=== PATIENT | female | born 1970 | race Caucasian/White ===

== ENCOUNTER 2017-04-20 20:51 | Emergency (ER) | payer BC ==
[2017-04-20] MEDS ORDERED: ONDANSETRON 4 MG ODT STARTER PACK 2 TAB BTL PO STA (21:31)
--- NOTE | 2017-04-20 22:05 | CT ---
EXAMINATION TYPE: CT brain wo con DATE OF EXAM: 04/20/2017 COMPARISON: NONE HISTORY: Migraine today. Light sensitivity. CT DLP: 1017.10 mGycm. Automated Exposure Control for Dose Reduction was Utilized. TECHNIQUE: CT scan of the head is performed without contrast. FINDINGS: There is no acute intracranial hemorrhage, mass effect, or midline shift identified. The ventricles and sulci are within normal limits in size. The globes are intact and the visualized sin uses are clear. IMPRESSION: No acute intracranial hemorrhage, mass effect, or midline shift is seen.
[2017-04-20] MEDS ORDERED: METOCLOPRAMIDE 5 MG/ML 2 ML VIAL IVP STA (22:33)
[2017-04-20] MEDS ORDERED: SODIUM CHLORIDE 0.9% 500 ML IV ONE (22:34)
[2017-04-20] MEDS ORDERED: DIHYDROERGOTAMINE MESYLATE 1 MG/ML 1 ML AMP IVP STA (22:35)
--- NOTE | 2017-04-20 22:36 | ED ---
General Adult HPI - General Source: patient, family, RN notes reviewed Mode of arrival: ambulatory Limitations: no limitations - History of Present Illness Location: genitals <Rashard Cruz - Last Filed: 04/20/17 22:15> <Randy Mc - Last Filed: 04/21/17 02:34> - General Chief complaint: Headache Stated complaint: Migraine Time Seen by Provider: 04/20/17 21:16 - History of Present Illness Initial comments: Light and history of present illness a 38-year-old female here for complaint of headache started this morning. Patient reports that she tried Fioricet which helped for several hours and then Aleve which helped for another several hours and then took a Vicodin which did not help. Nausea no vomiting. Mild photophobia. No stiff neck. Past history of migraines for 15 years. No fever. No recent illnesses. (Rashard Cruz) - Related Data Home Medications Medication Instructions Recorded Confirmed Cholecalciferol [Vitamin D3] 1,000 unit PO DAILY 04/20/17 04/20/17 Fexofenadine HCl [Griselda Allergy] 180 mg PO DAILY PRN 04/20/17 04/20/17 Norethindrone [Oriana] 0.35 mg PO DAILY 04/20/17 04/20/17 Omeprazole [PriLOSEC] 20 mg PO DAILY 04/20/17 04/20/17 Allergies Allergy/AdvReac Type Severity Reaction Status Date / Time diclofenac sodium Allergy facial Verified 04/20/17 21:16 [From Arthrotec] swelling misoprostol [From Arthrotec] Allergy facial Verified 04/20/17 21:16 swelling hydromorphone HCl AdvReac Nausea & Verified 04/20/17 21:16 [From Dilaudid] Vomiting Review of Systems ROS Other: All systems not noted in ROS Statement are negative. <Rashard Cruz - Last Filed: 04/20/17 22:15> ROS Other: All systems not noted in ROS Statement are negative. <Randy Mc - Last Filed: 04/21/17 02:34> ROS Statement: Those systems with pertinent positive or pertinent negative responses have been documented in the HPI. Review of systems frontal headache. No runny nose. Photophobia. No stiff neck or meningismus. No chest pain or shortness of breath no GI/ complaints or problems other than nausea but no vomiting no diarrhea. No rashes. All systems reviewed. Past medical problems significant for migraines 15 years otherwise complains of GERD, osteoarthritis history of back spasms and pain. Past surgeries include gallbladder, orthopedic surgery on both knees for menisci. Also laparoscopic examination for endometriosis. Family history father had [facility] grandfather cancer grandmother pancreatic the grandfather colon cancer. Nonsmoker nondrinker. ( Rashard Cruz) Past Medical History Past Medical History: GERD/Reflux, Osteoarthritis (OA) Additional Past Medical History / Comment(s): HX OF BACK SPASMS, FREQUENT DIARRHEA, HX OF HEART PALPITATIONS 8 YEARS AGO. History of Any Multi-Drug Resistant Organisms: None Reported Past Surgical History: Cholecystectomy, Orthopedic Surgery Additional Past Surgical History / Comment(s): EXP. LAPAROSCOPY, ARTHROSCOPY KNEE. Past Anesthesia/Blood Transfusion Reactions: Postoperative Nausea & Vomiting ( PONV) Past Psychological History: No Psychological Hx Reported Smoking Status: Never smoker Past Alcohol Use History: None Reported Past Drug Use History: None Reported - Past Family History Mother Additional Family Medical History / Comment(s): EMPHYSEMA Father Additional Family Medical History / Comment(s): HEART PROBLEMS <Rashard Cruz - Last Filed: 04/20/17 22:15> General Exam Limitations: no limitations <Rashard Cruz - Last Filed: 04/20/17 22:15> <Randy Mc - Last Filed: 04/21/17 02:34> - General Exam Comments Initial Comments: General: The patient is awake and alert, complaining of a migraine type headache which is recurrent. She reports she gets these every several months. No specific trigger. Vital signs temperature 98.0 pulse 77 respiratory rate 18 pulse ox on percent room air blood pressure 136/67 Eye: Pupils are equal, round and reactive to light, extra-ocular movements are intact ; there is normal conjunctiva bilaterally. No signs of icterus. Ears, nose, mouth and throat: There are moist mucous membranes and no oral lesions. Neck: The neck is supple, there is no tenderness . Patient appears to have had a mosquito or bug bite with local inflammation reaction to her anterior neck area. Cardiovascular: There is a regular rate and rhythm. No murmur, rub or gallop is appreciated. Respiratory: Lungs are clear to auscultation, respirations are non-labored, breath sounds are equal. No wheezes, stridor, rales, or rhonchi. Gastrointestinal: Soft, non-distended, non-tender abdomen without masses or organomegaly noted. There is no rebound or guarding present. No CVA tenderness. Bowel sounds are unremarkable. Back: There is no tenderness to palpation in the midline. There is no obvious deformity. No rashes noted. Musculoskeletal: Normal ROM, no tenderness, There is no pedal edema. There is no calf tenderness or swelling. Neurological: CN II-XII intact, There are no obvious motor or sensory deficits. Coordination appears grossly intact. Speech is normal. No focal or lateralizing findings Skin: No skin rashes. (Rashard Cruz) Medical Decision Making <Rashard Cruz - Last Filed: 04/20/17 22:15> <Randy Mc - Last Filed: 04/21/17 02:34> - Medical Decision Making Medical decision making; patient had a CAT scan of the brain. And reviewed by radiologist. His final impression is no acute intracranial hemorrhage, mass effect, or midline shift seen. As read by Dr. Brown The patient had an adverse reaction to diclofenac with eye swelling. And hydromorphone which caused nausea vomiting. The patient will be given D.H.E. 45 , with IV hydration and IV Reglan. for her headache. (Rashard Cruz) Disposition <Rashard Cruz - Last Filed: 04/20/17 22:15> <Randy Mc - Last Filed: 04/21/17 02:34> Clinical Impression: Migraine Disposition: HOME SELF-CARE Condition: Good Instructions: Acute Headache (ED) Referrals: Florecita Jose MD [Primary Care Provider] - 1-2 days
[2017-04-21] MEDS ORDERED: BUTALB/APAP/CAFF 50-325-40MG TAB PO STA (00:35)
[2017-04-21] MEDS ORDERED: ACETAMINOPHEN IV (For NPO) 1,000 MG in EMPTY BAG 1 BAG IVPB STA (00:39)
[2017-04-21] MEDS ORDERED: MORPHINE SULFATE 2 MG/ML SYRINGE IVP ONE (01:22)
[2017-04-21] MEDS ORDERED: diphenhydrAMINE 50 MG/ML 1 ML VIAL IVP STA (01:52)
[2017-04-21] MEDS ORDERED: PROCHLORPERAZINE 10 MG TAB PO STA (01:54)
[2017-04-21 03:26] VITALS: BP 120/70; PULSE 58; RESP 18; TEMP 97.9
== END 2017-04-21 02:50 | disposition home or self-care (01) ==
LOC: EC 20:51
DX: G43.909 Migraine, unspecified, not intractable, without status migrainosus (principal); K21.9 Gastro-esophageal reflux disease without esophagitis; Z79.899 Other long term (current) drug therapy; Z88.5 Allergy status to narcotic agent; Z88.6 Allergy status to analgesic agent; Z88.8 Allergy status to other drugs, medicaments and biological substances
CPT/HCPCS: 99284; 96365; 96375 ×4; 96361 ×2; 70450; S0183; J1110; J1200; J2765; J2270; J0131; S0119

== ENCOUNTER → 2017-09-08 | Outpatient (CLI) | payer BC ==
[2017-09-08 16:43] LABS: Basophils % (A) 0 %; CHCM 31.6; Eosinophils # (A) 0.2 k/uL (0-0.7); Eosinophils % (A) 2 %; HCT 39.5 % (34.0-46.0); HDW 2.44; HGB 12.3 gm/dL (11.4-16.0); Luc # (Auto) 0.07; Luc % (Auto) 1; Lymphocytes # (A) 2.2 k/uL (1.0-4.8); Lymphocytes % (A) 25 %; MCH 26.7 pg (25.0-35.0); MCHC 31.2 g/dL (31.0-37.0); MCV 85.7 fL (80.0-100.0); Mean Platelet Volume 7.4; Monocytes # (A) 0.4 k/uL (0-1.0); Monocytes % (A) 4 %; Neutrophils % (A) 68 %; RBC 4.62 m/uL (3.80-5.40); RDW 13.9 % (11.5-15.5); WBC 8.8 k/uL (3.8-10.6); WBC (Perox) 9.29
[2017-09-08 16:54] LABS: Potassium 4.7 mmol/L (3.5-5.1)
== END | disposition home or self-care (01) ==
LOC: LABWHC1 16:12
PROVIDERS: ATTEND Orthopaedic Surgery
DX: Z01.812 Encounter for preprocedural laboratory examination (principal); G56.01 Carpal tunnel syndrome, right upper limb
CPT/HCPCS: 36415; 80051; 85025

== ENCOUNTER 2017-10-01 11:22 | Day surgery (SDC) | payer BC ==
[2017-09-30 08:31] VITALS: BMI 36.3
--- NOTE | 2017-09-30 14:12 | HP ---
HISTORY AND PHYSICAL Surgery scheduled for 10/01/2017. Madeline Blanca is a 46-year-old patient seen with symptomatic right carpal tunnel syndrome. After treatment options were discussed, she elected to proceed with decompression right median nerve. Consent regarding the procedure was obtained. PAST MEDICAL HISTORY: Gastroesophageal reflux disease. PAST SURGICAL HISTORY: Noncontributory. MEDICATIONS: Omeprazole. ALLERGIES: ARTHROTEC. SOCIAL HISTORY: The patient denies current tobacco use. PHYSICAL EVALUATION OF THE RIGHT HAND: Positive carpal compression, carpal Tinel's causing numbness and tingling to the median nerve distribution. There is decreased light touch throughout the median nerve to be distribution. There is no tenderness along the A1 marine areas. There is a good radial pulse is present. There is good perfusion and sensation distally. Radiographs of the right hand revealed mild osteoarthritis. An EMG of the right upper extremity revealed carpal tunnel syndrome. IMPRESSION: Right carpal tunnel syndrome. PLAN: Decompression right median nerve. MMODL / IJN: [id number] /
[~2017-10-01 11:22] MED LIST: DEXAMETHASONE SOD PHOSPHATE 10 MG/ML 1 ML VIAL IV ONE; LACTATED RINGERS 1,000 ML IV SCH; MIDAZOLAM 2 MG/2 ML VIAL IV PRN; MORPHINE SULFATE 4 MG/ML SYRINGE IV PRN; ONDANSETRON 4 MG/2 ML VIAL IVP ONE; ceFAZolin IN SWFI 2 GM/20 ML SYRINGE IVP ONE
[2017-10-01 12:11] VITALS: TEMP 98.3
[2017-10-01] MEDS ORDERED: LIDOCAINE 1% 20 ML VIAL (10MG/ML) FOR IV START INTRADERMA ONE (12:29)
[2017-10-01] MEDS ORDERED: MIDAZOLAM 2 MG/2 ML VIAL ONE (13:34)
[2017-10-01] MEDS ORDERED: fentaNYL (PF) 50 MCG/ML 2 ML AMP ONE (13:34)
[2017-10-01] MEDS ORDERED: PROPOFOL 10 MG/ML 20 ML VIAL IV ONE (13:34)
[2017-10-01] MEDS ORDERED: BUPIVACAINE (PF) 0.25% 30 ML VIAL SQ ONE (13:34)
--- NOTE | 2017-10-01 13:59 | P.OP ---
Date of Procedure: 10/01/17 Preoperative Diagnosis: Right carpal tunnel syndrome Postoperative Diagnosis: Right carpal tunnel syndrome Procedure(s) Performed: Decompression right median nerve Anesthesia: MAC, local Surgeon: Joselito Farmer Estimated Blood Loss (ml): 0 Pathology: none sent Condition: stable Disposition: PACU Indications for Procedure: 46-year-old patient seen with symptomatic right carpal tunnel syndrome. After treatment options were discussed she elected to proceed with decompression. Operative Findings: See description of procedure Description of Procedure: The patient was taken to the operative suite. The patient underwent IV sedation by the department of anesthesia. She had received preoperative IV antibiotics. A well-padded tourniquet was placed proximal right upper extremity. The right upper extremity was prepped and draped in the normal sterile orthopedic fashion. The proposed incision site was infiltrated with 10 mL quarter percent plain Marcaine. Once sufficient local analgesia was noted the extremity was elevated and tourniquet insufflated to 250. I made an incision beginning at the distal volar wrist crease extending distally 3 cm in line with the fourth metacarpal sharply through skin. I dissected through the subcutaneous soft tissues and through the palmar fascia to the transverse carpal ligament. I incised the transverse carpal ligament making sure to release it completely proximally and distally with blunt Metzenbaums. There was good complete release of the transverse carpal ligament and good decompression of the nerve. There was good hemostasis. The wound was irrigated. The skin margins were approximated with nylon suture. Sterile dressings were applied. The tourniquet was released with immediate capillary refill of all digits. The patient was then transferred to recovery in stable condition.
[2017-10-01 14:15] VITALS: RESP 18
[2017-10-01 14:49] VITALS: BP 115/80; PULSE 63
== END 2017-10-01 15:01 | disposition home or self-care (01) ==
LOC: OR 11:22
PROVIDERS: ATTEND Orthopaedic Surgery
DX: G56.01 Carpal tunnel syndrome, right upper limb (principal); M19.041 Primary osteoarthritis, right hand; K21.9 Gastro-esophageal reflux disease without esophagitis; Z79.899 Other long term (current) drug therapy; Z79.3 Long term (current) use of hormonal contraceptives; Z88.6 Allergy status to analgesic agent; Z88.5 Allergy status to narcotic agent
CPT/HCPCS: 81025; 64721; J2250; J1100; J0690; J2405; J3010; J2704

== ENCOUNTER → 2018-03-30 | Outpatient (CLI) | payer BC ==
[2018-03-30 10:09] LABS: Basophils # (A) 0.1 k/uL (0-0.2); Basophils % (A) 1 %; Eosinophils # (A) 0.1 k/uL (0-0.7); Eosinophils % (A) 2 %; HCT 38.9 % (34.0-46.0); HGB 12.9 gm/dL (11.4-16.0); Lymphocytes # (A) 1.8 k/uL (1.0-4.8); Lymphocytes % (A) 24 %; MCH 26.9 pg (25.0-35.0); MCHC 33.3 g/dL (31.0-37.0); MCV 80.9 fL (80.0-100.0); Mean Platelet Volume 6.3; Monocytes # (A) 0.4 k/uL (0-1.0); Monocytes % (A) 6 %; Neutrophils # (A) 4.8 k/uL (1.3-7.7); Neutrophils % (A) 66 %; Platelet Count 278 k/uL (150-450); RBC 4.81 m/uL (3.80-5.40); RDW 12.8 % (11.5-15.5); WBC 7.2 k/uL (3.8-10.6)
== END | disposition home or self-care (01) ==
LOC: LABPAT 09:26
PROVIDERS: ATTEND Orthopaedic Surgery
DX: Z01.812 Encounter for preprocedural laboratory examination (principal); G56.02 Carpal tunnel syndrome, left upper limb; M65.332 Trigger finger, left middle finger
CPT/HCPCS: 36415; 85025

== ENCOUNTER → 2018-04-22 | Day surgery (SDC) | payer BC ==
[2018-04-16 09:10] VITALS: BMI 39.8
--- NOTE | 2018-04-21 18:23 | HP ---
HISTORY AND PHYSICAL DATE OF SURGERY: 04/22/2018 Madeline Blanca is a 47-year-old patient seen with symptomatic left carpal tunnel syndrome as well as a left middle finger trigger finger. We discussed options. She elected to proceed with surgical intervention, including decompression of the left median nerve and release A1 marine, left middle finger, for her symptomatic trigger finger. Consent regarding procedure was obtained. PAST MEDICAL HISTORY: Gastroesophageal reflux disease. PAST SURGICAL HISTORY: Noncontributory. DAILY MEDICATIONS: Omeprazole. ALLERGIES: ARTHROTEC. SOCIAL HISTORY: Patient denies current tobacco use. PHYSICAL EVALUATION OF HER LEFT HAND: She has a positive carpal compression, positive carpal Tinel's, both causing numbness and tingling to the median nerve distribution. She has some decreased light touch along the median nerve distribution. She is tender along the A1 marine of the left middle finger with clicking, catching with range of motion there. She has good perfusion distally. There is a good radial pulse present. RADIOGRAPHS: Radiographs of the left hand were obtained revealing some mild osteoarthritic changes. An EMG of the left upper extremity revealed carpal tunnel syndrome. IMPRESSION: 1. Left carpal tunnel syndrome. 2. Left middle finger trigger finger. PLAN: Decompression of left median nerve with release A1 marine, left middle finger. MMODL / IJN: [id number] /
[~2018-04-22] MED LIST changes: +BUPIVACAINE (PF) 0.5% 30 ML VIAL SQ ONE; +LIDOCAINE 1% 20 ML VIAL (10MG/ML) FOR IV START INTRADERMA ONE; +LIDOCAINE 1% INJ 10MG/ML (20 ML MDV) ONE; -MIDAZOLAM 2 MG/2 ML VIAL IV PRN; +MIDAZOLAM 2 MG/2 ML VIAL ONE; -MORPHINE SULFATE 4 MG/ML SYRINGE IV PRN; +PROPOFOL 10 MG/ML 20 ML VIAL IV ONE; +fentaNYL (PF) 50 MCG/ML 2 ML AMP IV PRN; +fentaNYL (PF) 50 MCG/ML 2 ML AMP ONE
[2018-04-22 10:51] VITALS: TEMP 98.4
--- NOTE | 2018-04-22 12:32 | P.OP ---
Date of Procedure: 04/22/18 Preoperative Diagnosis: 1. Left carpal tunnel syndrome 2. Left middle finger trigger finger Postoperative Diagnosis: Same Procedure(s) Performed: 1. Decompression left median nerve 2. Release A1 marine left middle finger Anesthesia: MELIDA local Surgeon: Joselito Farmer Estimated Blood Loss (ml): 1 Pathology: none sent Condition: stable Disposition: PACU Indications for Procedure: 47-year-old patient seen with symptomatic left carpal tunnel syndrome as well as asymptomatic left middle finger trigger finger. After having treatment options discussed, she elected to proceed with surgical release of the left middle finger trigger finger and decompression of the median nerve. Consent was obtained. Operative Findings: see description of procedure Description of Procedure: Patient was taken to the operative suite. The patient received preoperative IV antibiotics. The patient underwent IV sedation/anesthesia by the department of anesthesia. A well-padded tourniquet was placed proximal left upper extremity. Left upper extremity was now prepped and draped in the normal sterile orthopedic fashion. The extremity was elevated and the tourniquet was insufflated to 250. I made an incision beginning at the distal volar wrist crease extending distally approximately 3 cm in line with the fourth metacarpal sharply through skin. I dissected down through the subcutaneous soft tissues to the palmar fascia. I incised the palmar fascia and identified the transverse carpal ligament. I incised the transcarpal ligament and completed the release proximally and distally with blunt Metzenbaums. There was complete release of the ligament with good decompression of the nerve. I now turned my attention to the A1 marine area of the left middle finger. I made an incision over that area. I dissected through the subcu soft tissues down to the A1 marine. This is easily identified. I incised and released the A1 marine with blunt tenotomies. There was complete release of A1 marine. There was good excursion of the middle finger and good excursion of the tendon with no impingement. Both wounds were irrigated. Both incisions were approximated nylon suture. Sterile dressings were applied. The tourniquet was now released with immediate capillary refill of all digits noted. The patient awakened, transferred to recovery in stable condition.
[2018-04-22 12:53] VITALS: BP 115/63; PULSE 79; RESP 16
== END | disposition home or self-care (01) ==
LOC: OR 10:10
PROVIDERS: ATTEND Orthopaedic Surgery
DX: G56.02 Carpal tunnel syndrome, left upper limb (principal); M65.332 Trigger finger, left middle finger; K21.9 Gastro-esophageal reflux disease without esophagitis; Z79.899 Other long term (current) drug therapy; Z88.6 Allergy status to analgesic agent; K76.0 Fatty (change of) liver, not elsewhere classified; Z88.5 Allergy status to narcotic agent
CPT/HCPCS: 81025; 64721; 26055; J2250; J1100; J2405; J2001; J3010; J2704; J0690

== ENCOUNTER 2019-05-09 18:46 | Emergency (ER) | payer BC ==
[2019-05-09] MEDS ORDERED: MORPHINE SULFATE 4 MG/ML SYRINGE IV STA ×2 (19:38→21:19)
[2019-05-09] MEDS ORDERED: SODIUM CHLORIDE 0.9% 1,000 ML IV STA (19:38)
[2019-05-09] MEDS ORDERED: ONDANSETRON 4 MG/2 ML VIAL IVP STA (19:38)
[2019-05-09 20:02] LABS: Basophils % (A) 0 %; Eosinophils # (A) 0.1 k/uL (0-0.7); Eosinophils % (A) 1 %; HCT 38.1 % (34.0-46.0); HGB 12.6 gm/dL (11.4-16.0); Lymphocytes # (A) 1.2 k/uL (1.0-4.8); Lymphocytes % (A) 7 %; MCH 27.3 pg (25.0-35.0); MCHC 32.9 g/dL (31.0-37.0); Mean Platelet Volume 6.5; Monocytes # (A) 0.6 k/uL (0-1.0); Monocytes % (A) 3 %; Neutrophils # (A) 14.5 k/uL (1.3-7.7); Neutrophils % (A) 88 %; Platelet Count 302 k/uL (150-450); RDW 14.5 % (11.5-15.5); WBC 16.5 k/uL (3.8-10.6)
[2019-05-09 20:09] LABS: Appearance,Urine Clear (Clear); Bilirubin,Urine Negative (Negative); Blood,Urine Negative (Negative); Color,Urine Light Yellow; Glucose,Urine (UA) Negative (Negative); Ketones,Urine Negative (Negative); Leukocyte Esterase,Urine Negative (Negative); Nitrite,Urine Negative (Negative); Protein,Urine Negative (Negative); Specific Gravity,Urine 1.008 (1.001-1.035); Urobilinogen,Urine <2.0 mg/dL (<2.0)
[2019-05-09 20:16] LABS: Albumin 4.4 g/dL (3.5-5.0); Calcium 9.6 mg/dL (8.4-10.2); Potassium 4.3 mmol/L (3.5-5.1); Total Bilirubin 1.2 mg/dL (0.2-1.3); Total Protein 7.1 g/dL (6.3-8.2)
--- NOTE | 2019-05-09 21:09 | US ---
EXAMINATION TYPE: US kidneys/renal and bladder DATE OF EXAM: 05/09/2019 COMPARISON: NONE CLINICAL HISTORY: Pain. Pain left side x 3 days. No hx of kidney stones. EXAM MEASUREMENTS: Right Kidney: 9.8 x 4.6 x 5.1 cm Left Kidney: 11.7 x 6.4 x 6.1 cm Right Kidney: No hydronephrosis or masses seen Left Kidney: No hydronephrosis or masses seen Bladder: Internal echoes seen. Artifact? Bilateral Jets seen: no Bladder wall measures 3.7 mm. IMPRESSION: Echogenicity within the dependent urinary bladder could be some debris or old blood clot. No renal ma ss or obstruction.
[2019-05-09 21:14] VITALS: BP 133/83
--- NOTE | 2019-05-09 21:19 | ED ---
General Adult HPI - General Chief complaint: Abdominal Pain Stated complaint: abdominal pain Time Seen by Provider: 05/09/19 19:32 Source: patient, RN notes reviewed, old records reviewed Mode of arrival: ambulatory Limitations: no limitations - History of Present Illness Initial comments: 48-year-old female patient with diagnosed kidney stone on 05/07 presents to ED with left flank pain. Patient states that symptoms. Identical to kidney stone prior. Also reports nausea and vomiting. Denies any other complaints at this time. States that she is not . Systemic: Pt denies fatigue, fever/chills, rash. Pt denies weakness, night sweats, weight loss. Neuro: Pt denies headache, visual disturbances, syncope or pre-syncope. HEENT: Pt denies ocular discharge or irritation, otalgia, rhinorrhea, pharyngitis or notable lymphadenopathy. Cardiopulmonary: Pt denies chest pain, SOB, heart palpitations, dyspnea on exertion. Abdominal/GI: Pt denies abdominal pain. : Pt denies dysuria, burning w/ urination, frequency/urgency. Denies new onset urinary or bowel incontinence. MSK: Pt denies myalgia, loss of strength or function in extremities. Neuro: Pt denies new onset weakness, paresthesias. - Related Data Home Medications Medication Instructions Recorded Confirmed Norethindrone [Oriana] 0.35 mg PO DAILY 04/20/17 05/09/19 Omeprazole [PriLOSEC] 20 mg PO DAILY 04/20/17 05/09/19 Cholecalciferol (Vitamin D3) 2,000 unit PO DAILY 05/09/19 05/09/19 [Vitamin D3] Previous Rx's Medication Instructions Recorded Tamsulosin [Flomax] 0.4 mg PO DAILY #10 cap 05/09/19 Allergies Allergy/AdvReac Type Severity Reaction Status Date / Time diclofenac sodium Allergy facial Verified 05/09/19 19:37 [From Arthrotec] swelling misoprostol [From Arthrotec] Allergy facial Verified 05/09/19 19:37 swelling hydromorphone HCl AdvReac Nausea & Verified 05/09/19 19:37 [From Dilaudid] Vomiting Review of Systems ROS Statement: Those systems with pertinent positive or pertinent negative responses have been documented in the HPI. ROS Other: All systems not noted in ROS Statement are negative. Past Medical History Past Medical History: GERD/Reflux, Osteoarthritis (OA) Additional Past Medical History / Comment(s): HX OF BACK SPASMS, HX OF HEART PALPITATIONS 8 YEARS AGO, SEASONAL ALLERGIES History of Any Multi-Drug Resistant Organisms: None Reported Past Surgical History: Cholecystectomy, Orthopedic Surgery Additional Past Surgical History / Comment(s): EXP. LAPAROSCOPY, ARTHROSCOPY BILAT KNEE. RT [facility] Past Anesthesia/Blood Transfusion Reactions: Postoperative Nausea & Vomiting (PONV) Past Psychological History: No Psychological Hx Reported Smoking Status: Never smoker Past Alcohol Use History: None Reported Past Drug Use History: None Reported - Past Family History Mother Additional Family Medical History / Comment(s): EMPHYSEMA Father Additional Family Medical History / Comment(s): HEART PROBLEMS General Exam - General Exam Comments Initial Comments: Constitutional: NAD, AOX3, Pt has pleasant affect. HEENT: NC/AT, trachea midline, neck supple, no lymphadenopathy. Posterior pharynx non erythematous, without exudates. External ears appear normal, without discharge. Mucous membranes moist. Eyes PERRLA, EOM intact. There is no scleral icterus. No pallor noted. Cardiopulmonary: RRR, no murmurs, rubs or gallops, no JVD noted. Lungs CTAB in anterior and posterior kaur. No peripheral edema. Abdominal exam: Abdomen soft and non-distended. Abdomen non-tender to palpation in all 4 quadrants. Bowel sounds active in LLQ. No hepatosplenomegaly. No ecchymosis, no CVA tenderness. Neuro: CN II-XII grossly intact. No nuchal rigidity. No raccon eyes, no muñoz sign, no hemotympanum. No cervical spinal tenderness. MSK: No posterior calf tenderness bilaterally, homans sign negative bilaterally. Posterior tibialis and radial pulse +2 bilaterally. Sensation intact in upper and lower extremities. Full active ROM in upper and lower extremities, 5/5 stregnth. Limitations: no limitations Course Vital Signs 05/09/19 05/09/19 05/09/19 19:01 21:00 23:02 Temperature 98.6 F 98.9 F Pulse Rate 82 87 72 Respiratory 18 18 16 Rate Blood Pressure 134/84 133/83 O2 Sat by Pulse 99 94 L 98 Oximetry Medical Decision Making - Medical Decision Making 48-year-old female patient since ED with chief complaint of left flank pain lik nikki secondary to presumed diagnosed kidney stone. In patient's triage note she reported that she had decreased urination, further history taking reports that she had lots of urination yesterday more than normal, patient has a normal amount. Still complains of nausea and vomiting. Patient vital signs stable, afebrile. His exam did not display acute pathology. Laboratory investigations revealed a leukocytosis of 16.5. CMP reveals creatinine of 1.24. No prior. Patient administered 1 L normal saline. UA was negative. Ultrasound reveals an bladder displayed possible blood clot in bladder, no renal mass or obstruction. Patient pain well-controlled in ER. Patient was discharged with [facility] urology and primary care provider follow-up. Case discussed with Dr. Maguire. - Lab Data Result diagrams: 05/09/19 19:05/09/19 19: Lab Results 05/09/19 05/09/19 05/09/19 Range/Units 19: 19: 19:29 WBC 16.5 H (3.8-10.6) k/uL RBC 4.60 (3.80-5.40) m/uL Hgb 12.6 (11.4-16.0) gm/dL Hct 38.1 (34.0-46.0) % MCV 83.0 (80.0-100.0) fL MCH 27.3 (25.0-35.0) pg MCHC 32.9 (31.0-37.0) g/dL RDW 14.5 (11.5-15.5) % Plt Count 302 (150-450) k/uL Neutrophils % 88 % Lymphocytes % 7 % Monocytes % 3 % Eosinophils % 1 % Basophils % 0 % Neutrophils # 14.5 H (1.3-7.7) k/uL Lymphocytes # 1.2 (1.0-4.8) k/uL Monocytes # 0.6 (0-1.0) k/uL Eosinophils # 0.1 (0-0.7) k/uL Basophils # 0.0 (0-0.2) k/uL Sodium 138 (137-145) mmol/L Potassium 4.3 (3.5-5.1) mmol/L Chloride 101 (98-107) mmol/L Carbon Dioxide 27 (22-30) mmol/L Anion Gap 10 mmol/L BUN 19 H (7-17) mg/dL Creatinine 1.24 H (0.52-1.04) mg/dL Est GFR (CKD-EPI)AfAm 59 (>60 ml/min/1.73 sqM) Est GFR (CKD-EPI)NonAf 51 (>60 ml/min/1.73 sqM) Glucose 110 H (74-99) mg/dL Calcium 9.6 (8.4-10.2) mg/dL Total Bilirubin 1.2 (0.2-1.3) mg/dL AST 21 (14-36) U/L ALT 16 (9-52) U/L Alkaline Phosphatase 75 (38-126) U/L Total Protein 7.1 (6.3-8.2) g/dL Albumin 4.4 (3.5-5.0) g/dL Urine Color Light Yellow Urine Appearance Clear (Clear) Urine pH 6.0 (5.0-8.0) Ur Specific [place] 1.008 (1.001-1.035) Urine Protein Negative (Negative) Urine Glucose (UA) Negative (Negative) Urine Ketones Negative (Negative) Urine Blood Negative (Negative) Urine Nitrite Negative (Negative) Urine Bilirubin Negative (Negative) Urine Urobilinogen <2.0 (<2.0) mg/dL Ur Leukocyte Esterase Negative (Negative) Disposition Clinical Impression: Flank pain, Kidney stone Disposition: HOME SELF-CARE Condition: Stable Instructions (If sedation given, give patient instructions): Kidney Stones (ED) Additional Instructions: Patient to adhere to previously discussed treatment plan and will take medication(s) as directed. Patient to follow up with PCP in 1-2 days. Patient to return to ED if symptoms do not improve. Take medications as directed. Follow-up with urologist as well as primary care provider. Return to ER if condition worsens. Prescriptions: Tamsulosin [Flomax] 0.4 mg PO DAILY #10 cap Is patient prescribed a controlled substance at d/c from ED?: No Referrals: Florecita Jose MD [Primary Care Provider] - 1-2 days Irving Singletary MD [STAFF PHYSICIAN] - 1-2 days
[2019-05-09 23:03] VITALS: PULSE 72; RESP 16; TEMP 98.9
== END 2019-05-09 23:09 | disposition home or self-care (01) ==
LOC: EC 18:46
DX: N20.0 Calculus of kidney (principal); D72.829 Elevated white blood cell count, unspecified; K21.9 Gastro-esophageal reflux disease without esophagitis; Z90.49 Acquired absence of other specified parts of digestive tract; Z79.3 Long term (current) use of hormonal contraceptives; Z79.899 Other long term (current) drug therapy; Z88.6 Allergy status to analgesic agent; Z88.8 Allergy status to other drugs, medicaments and biological substances; Z88.5 Allergy status to narcotic agent
CPT/HCPCS: 36415; 80053; 85025; 81003; 76770; 99285; 96374; 96375; 96376; 96361 ×3; J2270; J2405

== ENCOUNTER 2022-05-10 10:50 | Emergency (ER) | payer BC ==
[2022-05-10] MEDS ORDERED: METOCLOPRAMIDE 5 MG/ML 2 ML VIAL IVP STA (11:10)
[2022-05-10] MEDS ORDERED: diphenhydrAMINE 50 MG/ML 1 ML VIAL IVP STA (11:10)
[2022-05-10] MEDS ORDERED: DEXAMETHASONE SOD PHOSPHATE 10 MG/ML 1 ML VIAL IV STA (11:10)
--- NOTE | 2022-05-10 11:15 | ED ---
Headache HPI - General Chief Complaint: Headache Stated Complaint: Head/Neck/back Pain Time Seen by Provider: 05/10/22 10:57 Source: patient, RN notes reviewed Mode of arrival: ambulatory Limitations: no limitations - History of Present Illness Initial Comments: Patient is a 51-year-old female presents the emergency room with complaints of continued migraine with photosensitivity. She reports that she developed a migraine on Thursday (3 days ago) which was severe prompting her to go to the local emergency room near her home. She reports that she was given a migraine cocktail of Toradol Benadryl and an antiemetic. She reports that the cocktail helped some however she did not have complete relief of her headache consequently she received a dose of morphine as well and still had only had relief down to a 2 out of 10 of her headache. She was discharged home and advised to follow-up with her primary care provider. She presents today as she has continued headache with increase in intensity recently but not as severe as 3 days ago along with associated neck and back pain. She does report that prior to her to dose before her migraine that she presented to the other ER regarding she did have some back spasms which are chronic for her and she had to utilize her muscle relaxer. She did get good response from the medication at that time and has not had spasms since then but is complaining of back pain and neck pain that has been ongoing for approximately 24 hours now with changing symptoms into her head which is not uncommon for her when her neck pain gets severe. In addition to her chronic back pain and migraine history she has a history of GERD and ostia osteoarthritis along with seasonal allergies. She denies any other complaints or concerns at this time. - Related Data Home Medications Medication Instructions Recorded Confirmed Norethindrone [Oriana] 0.35 mg PO DAILY 04/20/17 05/09/19 Omeprazole [PriLOSEC] 20 mg PO DAILY 04/20/17 05/09/19 Cholecalciferol (Vitamin D3) 2,000 unit PO DAILY 05/09/19 05/09/19 [Vitamin D3] Previous Rx's Medication Instructions Recorded Tamsulosin [Flomax] 0.4 mg PO DAILY #10 cap 05/09/19 SUMAtriptan succinate [Imitrex] 50 mg PO ONCE 3 Days #6 tablet 05/10/22 Allergies Allergy/AdvReac Type Severity Reaction Status Date / Time diclofenac sodium Allergy facial Verified 05/10/22 10:55 [From Arthrotec] swelling misoprostol [From Arthrotec] Allergy facial Verified 05/10/22 10:55 swelling hydromorphone HCl AdvReac Nausea & Verified 05/10/22 10:55 [From Dilaudid] Vomiting Review of Systems ROS Statement: Those systems with pertinent positive or pertinent negative responses have been documented in the HPI. ROS Other: All systems not noted in ROS Statement are negative. Past Medical History Past Medical History: GERD/Reflux, Osteoarthritis (OA) Additional Past Medical History / Comment(s): HX OF BACK SPASMS, HX OF HEART PALPITATIONS 8 YEARS AGO, SEASONAL ALLERGIES, migraine History of Any Multi-Drug Resistant Organisms: None Reported Past Surgical History: Cholecystectomy, Orthopedic Surgery Additional Past Surgical History / Comment(s): EXP. LAPAROSCOPY, ARTHROSCOPY BILAT KNEE. [facility] Past Anesthesia/Blood Transfusion Reactions: Postoperative Nausea & Vomiting (PONV) Past Psychological History: No Psychological Hx Reported Past Alcohol Use History: None Reported Past Drug Use History: None Reported - Past Family History Mother Additional Family Medical History / Comment(s): EMPHYSEMA Father Additional Family Medical History / Comment(s): HEART PROBLEMS General Exam Limitations: no limitations General appearance: alert, in no apparent distress Head exam: Present: atraumatic, normocephalic, normal inspection Eye exam: Present: normal appearance, PERRL, EOMI. Absent: scleral icterus, conjunctival injection, periorbital swelling ENT exam: Present: normal exam, mucous membranes moist Neck exam: Present: normal inspection. Absent: tenderness, meningismus, lymphadenopathy Respiratory exam: Present: normal lung sounds bilaterally. Absent: respiratory distress, wheezes, rales, rhonchi, stridor Cardiovascular Exam: Present: regular rate, normal rhythm, normal heart sounds. Absent: systolic murmur, diastolic murmur, rubs, gallop, clicks GI/Abdominal exam: Present: soft, normal bowel sounds. Absent: distended, tenderness, guarding, rebound, rigid Extremities exam: Present: normal inspection, full ROM, normal capillary refill. Absent: tenderness, pedal edema, joint swelling, calf tenderness Back exam: Present: normal inspection, full ROM, paraspinal tenderness. Absent: muscle spasm, vertebral tenderness Neurological exam: Present: alert, oriented X3, CN II-XII intact, normal gait Expanded Speech: Present: fluid speech Cranial nerves: EOM's Intact: Normal, Gag Reflex: Normal, Nystagmus: Normal, Facial Sensation: Normal Motor strength exam: RUE: 5, LUE: 5, RLE: 5, LLE: 5 Eye Response: (4) open spontaneously Motor Response: (6) obeys commands Verbal Response: (5) oriented Labelle Total: 15 Psychiatric exam: Present: normal affect, normal mood Skin exam: Present: warm, dry, intact, normal color. Absent: rash Course Vital Signs 05/10/22 05/10/22 10:51 13:32 Temperature 98.4 F 98.9 F Pulse Rate 79 67 Respiratory 18 15 Rate Blood Pressure 146/88 121/67 O2 Sat by Pulse 94 L 93 L Oximetry Medical Decision Making - Medical Decision Making Patient with migraine and no migraine history without neurological deficits or changes in migraine characteristics only with increased intensity. Computed tomography scan earlier this week at the onset of migraine negative for acute findings. No indication for repeat computed tomography scan at this time. No indication for laboratory studies. Will check for COVID and influenza in the setting of headache. Patient reports that she received a cocktail at [facility] on Thursday, 3 days ago, which consisted of Benadryl, Toradol and "another medication". Back and neck pain likely secondary to increased muscle stiffness secondary to lack of mobility no need for diagnostic imaging at this time. Will give cocktail of higher dose Benadryl, Decadron instead of Toradol and Reglan. Will monitor symptoms. Pain much improved score 2 out of 10 with migraine cocktail. Still with significant neck and back pain. Will give IM morphine along with normal saline bolus and montior response. Pain resolved with addition of IV fluids and morphine added to migraine cocktail. Does have a prescription for abortive medication at home and is not currently on maintenance medication for migraines either. She has already scheduled an appointment with neurology that is set for the end of May. She does have muscle relaxers and fiorecet that at home for treatment if needed. Risks benefits and side effects of triptans discussed. Will give prescription for Imitrex to utilize for abortive needs for migraine. Will discharge home with follow-up with her primary care provider and neurology as scheduled. Migraine education provided along with chronic back pain education. Signs and symptoms requiring return to the emergency room or and/or need for urgent follow-up regarding changes in migraines or back pain discussed. Case discussed with Dr. Garcia. - Lab Data Lab Results 05/10/22 05/10/22 Range/Units 11:25 11:25 Coronavirus (PCR) Not Detected (Not Detectd) Influenza Type A RNA Not Detected (Not Detectd) Influenza Type B (PCR) Not Detected (Not Detectd) Disposition Clinical Impression: Migraine headache, Cervicalgia, Chronic low back pain Disposition: HOME SELF-CARE Condition: Stable Instructions (If sedation given, give patient instructions): Migraine Headache (ED), Cervical Radiculopathy (ED), Chronic Back Pain (DC), Lower Back Exercises (ED) Additional Instructions: Please continue to use Fioricet or as prescribed Imitrex as needed for migraine headaches. Please avoid caffeinated products and other potential triggers for migraines. In regards to back and neck pain please continue to utilize her muscle relaxer that you already have for muscle spasms along with Tylenol or ibuprofen as needed for pain. Avoid bedrest. Range of motion as tolerated e ncouraged. Please keep your upcoming appointment with neurology along with your primary care provider. Seek immediate medical attention for any neurological deficits, changes in headache characteristics or bowel or bladder incontinence. Please return to the Emergency Department if symptoms worsen or any other concerns. Prescriptions: SUMAtriptan succinate [Imitrex] 50 mg PO ONCE 3 Days #6 tablet Is patient prescribed a controlled substance at d/c from ED?: No Referrals: Florecita Jose MD [Primary Care Provider] - 1-2 days Time of Disposition: 14:53
[2022-05-10] MEDS ORDERED: MORPHINE SULFATE 4 MG/ML SYRINGE IVP STA (12:37)
[2022-05-10] MEDS ORDERED: SODIUM CHLORIDE 0.9% 1,000 ML IV STA (12:48)
[2022-05-10 15:33] VITALS: BP 143/88; PULSE 77; RESP 16; TEMP 98.8
== END 2022-05-10 15:33 | disposition home or self-care (01) ==
LOC: EC 10:50
DX: G43.909 Migraine, unspecified, not intractable, without status migrainosus (principal); M54.50 Low back pain, unspecified; G89.29 Other chronic pain; Z20.822 Contact with and (suspected) exposure to COVID-19; K21.9 Gastro-esophageal reflux disease without esophagitis; Z88.6 Allergy status to analgesic agent; Z88.8 Allergy status to other drugs, medicaments and biological substances; Z88.5 Allergy status to narcotic agent; Z79.899 Other long term (current) drug therapy
CPT/HCPCS: 87502; 87635; 99283; 96374; 96375; 96361; J2270; J1200; J1100; J2765